=== PATIENT | male | born 1965 | race Caucasian/White ===

== ENCOUNTER 2017-06-30 17:03 | Emergency (ER) | payer OTHER ==
[~2017-06-30] VITALS: Ht 175.3 cm; Wt 102.1 kg
[~2017-06-30 17:03] MED LIST: blood pressure med
[2017-06-30 18:42] LABS: HEMATOCRIT 45.9 % (38.0-50.0); MCHC 34.9 G/DL (30.0-36.0); MCV 91.8 FL (86-99); PLATELET COUNT 188 K/uL (156-360); RBC DIS.WIDTH-CV 11.8 % (11.8-14.6); RBC DIS.WIDTH-SD 39.4 % (39-53); WHITE BLOOD COUNT 8.7 K/uL (4.1-10.2)
[2017-06-30 18:50] LABS: ALBUMIN 4.2 g/dL (3.2-4.8); CHLORIDE 104 mEq/L (99-109); POTASSIUM 4.1 mEq/L (3.7-5.4); SODIUM 135 mEq/L (136-147)
[2017-06-30 18:52] LABS: GLUCOSE 160 mg/dL (70-99); TOTAL PROTEIN 7.5 g/dL (6.4-8.3)
[2017-06-30 18:54] LABS: TOTAL BILIRUBIN 0.6 mg/dL (0.0-1.0)
[2017-06-30 18:56] LABS: ALKALINE PHOSPHATASE 60 IU/L (3-129); CREATININE 1.1 mg/dL (0.6-1.3); GFR ESTIMATE (CALCULATED) > 59 mL/min/ (58.99-99999)
[2017-06-30 18:57] LABS: UREA NITROGEN (BUN) 19 mg/dL (9-23)
[2017-06-30 18:58] LABS: AST (GOT) 25 IU/L (2-34)
[2017-06-30 18:59] LABS: ALT (GPT) 35 IU/L (3-49)
[2017-06-30 19:15] VITALS: BP 159/89
== END 2017-06-30 19:17 | disposition home or self-care (01) ==
LOC: EME 17:03
PROVIDERS: Physician Assistant
DX: R42 Dizziness and giddiness (principal); R73.9 Hyperglycemia, unspecified; I10 Essential (primary) hypertension
CPT/HCPCS: 80053; 85027; 93005; 99281; 99284